=== PATIENT | male | born 1980 | race Caucasian/White ===

== ENCOUNTER → 2017-08-24 | Outpatient (CLI) | payer BC | END | disposition home or self-care (01) | LOC: C.LAB1850 13:17 | PROVIDERS: ATTEND Specialist | DX: Z11.3 Encounter for screening for infections with a predominantly sexual mode of transmission (principal); Z11.4 Encounter for screening for human immunodeficiency virus [HIV]; Z11.59 Encounter for screening for other viral diseases ==

== ENCOUNTER → 2017-08-24 | Outpatient (CLI) | payer BC ==
[2017-08-24 13:50] LABS: DAYS OF ABSTINENCE 4; METHOD OF COLLECTION MASTURBATION; SEMEN TIME OF COLLECTION 1245; TYPE OF SPECIMEN CONTAINER STERILE CUP
[2017-08-24 13:51] LABS: SEMEN COLOR GRAY OR GRAY-WHITE (GRY/GRYWHTE); SEMEN VOLUME 5.2 ML (>1.5)
[2017-08-27 18:24] LABS: SPERM VIABILITY STAIN 20 % (>58%)
== END | disposition home or self-care (01) ==
LOC: C.LAB 13:10
PROVIDERS: ATTEND Specialist
DX: Z31.41 Encounter for fertility testing (principal)

== ENCOUNTER → 2017-11-05 | Outpatient (CLI) | payer OTHER | END | disposition home or self-care (01) | LOC: C.LAB1850 12:48 | PROVIDERS: ATTEND Specialist | DX: Z31.440 Encounter of male for testing for genetic disease carrier status for procreative management (principal) ==